=== PATIENT | female | born 1990 | race Caucasian/White ===

== ENCOUNTER 2019-09-12 15:36 | Outpatient (CLI) | payer BC, OTHER ==
[~2019-09-12] VITALS: Ht 157.5 cm; Wt 80.0 kg
[~2019-09-12 15:36] MED LIST: ALBU8.5H8 INH; none per patient
[2019-09-12 15:42] VITALS: BP 122/78
[2019-09-12 16:23] LABS: MICROSCOPIC INDICATED
[2019-09-12 16:23] LABS: BASOPHILS # (AUTO) 0.03 x10^3/uL (0-0.1); BASOPHILS % (AUTO) 0 % (0-1); EOSINOPHILS # (AUTO) 0.07 x10^3/uL (0-0.4); EOSINOPHILS % (AUTO) 1 % (1-7); LYMPHOCYTES # (AUTO) 1.53 x10^3/uL (1-3.4); LYMPHOCYTES % (AUTO) 22 % (22-44); MD NO; MEAN CORPUSCULAR HEMOGLOBIN 24.8 pg (27.0-34.8); MEAN CORPUSCULAR VOLUME 77.6 fL (80-100); MEAN PLATELET VOLUME 9.6 fL (7.4-10.4); MONOCYTES # (AUTO) 0.39 x10^3/uL (0.2-0.8); MONOCYTES % (AUTO) 6 % (2-9); NEUTROPHILS # (AUTO) 4.83 x10^3/uL (1.8-6.8); NEUTROPHILS % (AUTO) 71 % (42-75); PLATELET COUNT 262 x10^3/uL (130-400); RED BLOOD COUNT 3.91 x10^6/uL (3.82-5.3); RED CELL DISTRIBUTION WIDTH 16.9 % (9.6-15.2)
[2019-09-12 16:31] LABS: ALBUMIN 2.7 g/dL (3.4-5.0); ANION GAP 6 mmol/L (5-15); CALCIUM 8.8 mg/dL (8.5-10.1); CHLORIDE 108 mmol/L (98-107)
[2019-09-12 16:35] LABS: ALANINE AMINOTRANSFERASE 12 U/L (12-78); ALKALINE PHOSPHATASE 156 U/L (45-117); BILIRUBIN,TOTAL 0.5 mg/dL (0.2-1.0); CREATININE 0.68 mg/dL (0.55-1.02); TOTAL PROTEIN 7.1 g/dL (6.4-8.2)
[2019-09-12 17:30] LABS: CREATININE,URINE RANDOM 50.9 mg/dL
== END 2019-09-12 17:30 | disposition home or self-care (01) ==
LOC: LDOP 15:36
PROVIDERS: ATTEND Obstetrics & Gynecology
DX: O13.3 Gestational [pregnancy-induced] hypertension without significant proteinuria, third trimester (principal); Z3A.37 37 weeks gestation of pregnancy
CPT/HCPCS: 36415; 59025; 80053; 81001; 82570; 84156; 84550; 85025; 99211; G0463

== ENCOUNTER 2019-09-19 06:07 | Inpatient (IN) | payer BC, OTHER ==
[~2019-09-19] VITALS: Ht 157.5 cm; Wt 80.0 kg
[2019-09-19] MEDS ORDERED: OXYTOCIN 30U/ 0.9% NaCL 500ML 500 ML IV PRN (06:18)
[2019-09-19] MEDS ORDERED: D5%-LACTATED RINGERS 1,000 ML IV SCH (06:18)
[2019-09-19] MEDS ORDERED: OXYTOCIN 30U/ 0.9% NaCL 500ML 500 ML IV ONE (06:18)
[2019-09-19] MEDS ORDERED: SODIUM CITRATE/CITRIC ACID 30 ML UDC PO PRN (06:30)
[2019-09-19] MEDS ORDERED: FENTANYL PF 100 MCG/2ML IVPush PRN (06:30)
[2019-09-19] MEDS ORDERED: TERBUTALINE 1 MG/ML, 1ML SQ PRN (06:30)
[2019-09-19] MEDS ORDERED: ALUMINUM/MAG/SIMETHICONE 30 ML UDC PO PRN (06:30)
[2019-09-19] MEDS ORDERED: PLEASE ENTER HEIGHT AND WEIGHT MC SCH (06:30)
[2019-09-19] MEDS ORDERED: TERBUTALINE 1 MG/ML, 1ML IVPush PRN (06:30)
[2019-09-19] MEDS ORDERED: METOCLOPRAMIDE 5 MG/ML, 2ML IVPush PRN (06:30)
[2019-09-19] MEDS ORDERED: CALCIUM CARBONATE 500 MG TAB.CHEW PO PRN (06:30)
[2019-09-19] MEDS ORDERED: FENTANYL PF 100 MCG/2ML IV PRN (06:30)
[2019-09-19] MEDS ORDERED: ONDANSETRON 2MG/ML, 2ML IVPush PRN (06:30)
[2019-09-19] MEDS ORDERED: MISOPROSTOL 200 MCG TABLET ONE (06:31)
[2019-09-19] MEDS ORDERED: NEWBORN KIT ONE (06:31)
[2019-09-19] MEDS ORDERED: OXYTOCIN 30U/ 0.9% NaCL 500ML 500 ML ONE ×2 (06:31→20:00)
[2019-09-19 06:51] LABS: BASOPHILS # (AUTO) 0.11 x10^3/uL (0-0.1); BASOPHILS % (AUTO) 1 % (0-1); EOSINOPHILS # (AUTO) 0.03 x10^3/uL (0-0.4); EOSINOPHILS % (AUTO) 0 % (1-7); LYMPHOCYTES # (AUTO) 2.11 x10^3/uL (1-3.4); LYMPHOCYTES % (AUTO) 27 % (22-44); MD NO; MEAN CORPUSCULAR HEMOGLOBIN 24.7 pg (27.0-34.8); MEAN CORPUSCULAR HGB CONC 32.2 g/dL (32.4-35.8); MEAN CORPUSCULAR VOLUME 76.7 fL (80-100); MEAN PLATELET VOLUME 9.6 fL (7.4-10.4); MONOCYTES # (AUTO) 0.38 x10^3/uL (0.2-0.8); MONOCYTES % (AUTO) 5 % (2-9); NEUTROPHILS # (AUTO) 5.07 x10^3/uL (1.8-6.8); NEUTROPHILS % (AUTO) 66 % (42-75); PLATELET COUNT 269 x10^3/uL (130-400); RED BLOOD COUNT 3.83 x10^6/uL (3.82-5.3); RED CELL DISTRIBUTION WIDTH 17.4 % (9.6-15.2)
[2019-09-19 07:04] LABS: ALANINE AMINOTRANSFERASE 12 U/L (12-78); ALBUMIN 2.7 g/dL (3.4-5.0); ANION GAP 7 mmol/L (5-15); CALCIUM 8.6 mg/dL (8.5-10.1); CHLORIDE 108 mmol/L (98-107); CREATININE 0.68 mg/dL (0.55-1.02)
[2019-09-19 07:07] LABS: ALKALINE PHOSPHATASE 162 U/L (45-117); BILIRUBIN,TOTAL 0.4 mg/dL (0.2-1.0); TOTAL PROTEIN 6.9 g/dL (6.4-8.2)
[2019-09-19 07:09] VITALS: BP 123/76
[2019-09-19 07:27] LABS: MICROSCOPIC INDICATED
[2019-09-19] MEDS: LACTATED RINGERS 1,000 ML IV SCH ×2 (07:42→18:00)
[2019-09-19] MEDS ORDERED: FENTANYL IV PRN (15:00)
[2019-09-19] MEDS ORDERED: BUPIVACAINE IV PRN (15:00)
[2019-09-19] MEDS ORDERED: [UNRECOGNIZED DRUG - OTHER] IV PRN (15:00)
[2019-09-19] MEDS ORDERED: LIDOCAINE/PF 1.5% EPI 1:200K, 10 ML ONE (17:10)
[2019-09-19] MEDS ORDERED: LACTATED RINGERS 1,000 ML IV SCH (17:35)
[2019-09-19] MEDS ORDERED: FENTANYL/BUPIV./NS/PF 250 ML EPIDCONT SCH (17:35)
[2019-09-19] MEDS ORDERED: EPHEDRINE 50 MG/ML, 1ML IVPush PRN (18:00)
[2019-09-19] MEDS ORDERED: NALOXONE 0.4 MG/ML, 1ML IVPush PRN (18:00)
[2019-09-19] MEDS ORDERED: LACTATED RINGERS 1,000 ML IVBOLUS PRN (18:00)
[2019-09-19] MEDS ORDERED: METHYLERGONOVINE 0.2 MG/ML IM PRN (20:00)
[2019-09-19] MEDS ORDERED: SIMETHICONE 80 MG CHEW TAB PO PRN (20:00)
[2019-09-19] MEDS ORDERED: CARBOPROST TROMETHAMINE 250 MCG/ML, 1ML IM PRN (20:00)
[2019-09-19] MEDS ORDERED: MISOPROSTOL 200 MCG TABLET PR PRN (20:00)
[2019-09-19] MEDS ORDERED: HYDROcodone/APAP 5/325 TABLET PO PRN ×2 (20:00)
[2019-09-19] MEDS ORDERED: OXYTOCIN 10 UNITS/ML, 1ML IM PRN (20:00)
[2019-09-19] MEDS ORDERED: ONDANSETRON 2MG/ML, 2ML IV PRN (20:00)
[2019-09-19] MEDS ORDERED: IBUPROFEN 600 MG TABLET ONE (20:00)
[2019-09-19] MEDS: IBUPROFEN 600 MG TABLET PO PRN (20:04)
[2019-09-19] MEDS: OXYTOCIN 30U/ 0.9% NaCL 500ML 500 ML IV SCH (20:05)
[2019-09-19 21:15] VITALS: BP 124/84
[2019-09-20 01:30] VITALS: BP 120/81
[2019-09-20] MEDS: IBUPROFEN 600 MG TABLET PO PRN ×3 (01:32→23:47)
[2019-09-20 04:30] VITALS: BP 112/76
[2019-09-20] MEDS: ACETAMINOPHEN 325 MG TABLET PO PRN ×2 (04:33→15:06)
[2019-09-20] MEDS: OXYTOCIN 30U/ 0.9% NaCL 500ML 500 ML IV SCH ×2 (05:43→15:43)
[2019-09-20 06:39] LABS: BASOPHILS # (AUTO) 0.02 x10^3/uL (0-0.1); BASOPHILS % (AUTO) 0 % (0-1); EOSINOPHILS # (AUTO) 0.05 x10^3/uL (0-0.4); EOSINOPHILS % (AUTO) 0 % (1-7); LYMPHOCYTES # (AUTO) 1.84 x10^3/uL (1-3.4); LYMPHOCYTES % (AUTO) 17 % (22-44); MD NO; MEAN CORPUSCULAR HEMOGLOBIN 24.4 pg (27.0-34.8); MEAN CORPUSCULAR HGB CONC 31.6 g/dL (32.4-35.8); MEAN PLATELET VOLUME 9.8 fL (7.4-10.4); MONOCYTES # (AUTO) 0.76 x10^3/uL (0.2-0.8); MONOCYTES % (AUTO) 7 % (2-9); NEUTROPHILS # (AUTO) 8.32 x10^3/uL (1.8-6.8); NEUTROPHILS % (AUTO) 76 % (42-75); PLATELET COUNT 222 x10^3/uL (130-400); RED BLOOD COUNT 3.39 x10^6/uL (3.82-5.3); RED CELL DISTRIBUTION WIDTH 17.4 % (9.6-15.2)
[2019-09-20] MEDS: PRENATAL VIT/IRON/FA 1 EACH TABLET PO SCH (08:08)
[2019-09-20] MEDS: DOCUSATE 100 MG CAPSULE PO PRN ×2 (08:08→23:32)
[2019-09-20 08:41] VITALS: BP 121/86
[2019-09-20] MEDS ORDERED: DIPH,PERTUSS(ACELL),TET VAC/PF NC IM-VACC ONE ×2 (15:50→16:30)
[2019-09-20 19:46] VITALS: BP 125/82
[2019-09-21] MEDS: OXYTOCIN 30U/ 0.9% NaCL 500ML 500 ML IV SCH (01:43)
[2019-09-21 07:28] VITALS: BP 122/83
[2019-09-21] MEDS ORDERED: FERR325T5 PO (10:07)
[2019-09-21] MEDS ORDERED: IBUP-1222 PO (10:08)
[2019-09-21] MEDS ORDERED: SENN-92 PO (10:08)
[2019-09-21] MEDS: PRENATAL VIT/IRON/FA 1 EACH TABLET PO SCH (11:33)
[2019-09-21] MEDS: IBUPROFEN 600 MG TABLET PO PRN (11:33)
[2019-09-21] MEDS: DOCUSATE 100 MG CAPSULE PO PRN (11:33)
== END 2019-09-21 16:05 | disposition home or self-care (01) | DRG 807 ==
LOC: LDIP 06:07 → 2NW 21:28
PROVIDERS: ADMIT Obstetrics & Gynecology; ATTEND Obstetrics & Gynecology
PROC: 10E0XZZ Delivery of Products of Conception, External Approach (ICD-10-PCS; principal; 2019-09-19)
PROC: 3E0R3BZ Introduction of Anesthetic Agent into Spinal Canal, Percutaneous Approach (ICD-10-PCS; 2019-09-19)
PROC: 00HU33Z Insertion of Infusion Device into Spinal Canal, Percutaneous Approach (ICD-10-PCS; 2019-09-19)
PROC: 3E0234Z Introduction of Serum, Toxoid and Vaccine into Muscle, Percutaneous Approach (ICD-10-PCS; 2019-09-20)
DX: O13.4 Gestational [pregnancy-induced] hypertension without significant proteinuria, complicating childbirth (principal); Z37.0 Single live birth; J45.909 Unspecified asthma, uncomplicated; O99.52 Diseases of the respiratory system complicating childbirth; Z3A.38 38 weeks gestation of pregnancy; Z67.41 Type O blood, Rh negative
CPT/HCPCS: 36415; 80053; 81001; 82570; 84156; 84550; 85025; 85461; 86592; 86850; 86900; 90715; G0378; J2790; J2590; J3010; J7120; U0001-CS